=== PATIENT | female | born 1950 | race Caucasian/White ===

== ENCOUNTER 2016-06-10 20:24 | Emergency (ER) | payer MEDICARE, MEDICAID ==
[~2016-06-10] VITALS: Ht 152.4 cm; Wt 69.5 kg
[~2016-06-10 20:24] MED LIST: ATOR40TA68 PO; CEPH-443 PO; GLIP-95 PO; IBUP400T22 PO; LINA5TAB PO; LOSA25TA5 PO; METF-406 PO; RANI150T9 PO; SSD1C20 TOP; ULT50 PO
[2016-06-10 20:27] VITALS: Ht 152.4 cm; Wt 69.5 kg
[2016-06-10] MEDS ORDERED: LORA-186 PO (21:23)
[2016-06-10] MEDS ORDERED: IBUP-1542 PO (21:23)
--- NOTE | 2016-06-10 22:00 | ERD ---
ER Documentation Chief Complaint Date/Time DATE: 06/10/16 TIME: 21:[address] and colds x 4 days HPI 66-year-old female with a history of diabetes type 2 presents to the emergency room complaining of sore throat, nasal congestion and cough for the past 4 days. She denies any chest pain or shortness of breath. Denies any fever. She has not taken any medications for the ROS All systems reviewed and are negative except as per history of present illness. Medications Home Meds Active Scripts Ibuprofen* (Motrin*) 600 Mg Tab, 600 MG PO Q6H Y for PAIN AND OR ELEVATED TEMP, #30 TAB Prov:JOVITA LAUREN-C 06/10/16 Loratadine* (Claritin*) 10 Mg Tablet, 10 MG PO DAILY, #30 TAB Prov:JOVITA LAURENC 06/10/16 Ibuprofen* (Motrin*) 400 Mg Tab, 400 MG PO Q6H Y for PAIN AND OR ELEVATED TEMP, #20 TAB Prov:JOSIE MAHONEY NP 02/06/16 Tramadol HCl (Tramadol HCl) 50 Mg Tablet, 50 MG PO Q6 Y for SEVERE PAIN LEVEL 7- 10, #20 TAB Prov:JOSIE MAHONEY NP 02/06/16 Cephalexin* (Keflex*) 500 Mg Capsule, 500 MG PO QID for 10 Days, CAP Prov:JOSIE MAHONEY NP 02/06/16 Silver Sulfadiazine (THERMAZENE 1% 25 GM) 1 Applic Cr, 1 APPLIC TOP BID, #1 TUB Prov:JOSIE MAHONEY NP 02/06/16 Ranitidine Hcl* (Zantac*) 150 Mg Tablet, 150 MG PO BID Y for EPIGASTRIC PAIN, # 30 TAB Prov:DARRON GARCIA DO 01/10/16 Tramadol HCl (Tramadol HCl) 50 Mg Tablet, 25 MG PO Q8 Y for PAIN, #10 TAB Prov:DARRON GARCIA DO 01/10/16 Reported Medications Atorvastatin* (Atorvastatin*) 40 Mg Tablet, 40 MG PO QHS, #30 TAB 01/10/16 Linagliptin (TRADJENTA) 5 Mg Tablet, 5 MG PO DAILY, TAB 01/10/16 Glipizide* (Glipizide*) 10 Mg Tablet, 10 MG PO BID, TAB 01/10/16 Losartan Potassium* (Losartan Potassium*) 25 Mg Tablet, 25 MG PO DAILY, TAB 11/04/15 Metformin Hcl* (Metformin Hcl* ER) 1,000 Mg Tab.er.24, 1000 MG PO BID, TAB.SA 12/04/13 Allergies Allergies: Coded Allergies: No Known Drug Allergies (Verified Allergy, Unknown, 01/10/16) PMhx/Soc History of Surgery: Yes (L Knee Surg) Anesthesia Reaction: No Hx Neurological Disorder: No Hx Respiratory Disorders: No Hx Cardiac Disorders: No Hx Psychiatric Problems: No Hx Miscellaneous Medical Probl: Yes (DM) Hx Alcohol Use: No Hx Substance Use: No Hx Tobacco Use: No Smoking Status: Never smoker Physical Exam Vitals Vital Signs Date Time Temp Pulse Resp B/P Pulse Ox O2 Delivery O2 Flow Rate FiO2 06/10/16 20:27 98.3 91 20 132/68 97 Physical Exam GENERAL: well-developed/well-nourished, in no apparent distress, non-toxic appearing HEAD: NC/AT, no swelling noted in frontal or maxillary areas EARS: bilateral tympanic membrane is intact without erythema or effusion NARES: nares congested THROAT: oropharynx non-erythematous without exudates, no tonsil enlargement, post nasal drip EYES: Conjunctiva normal NECK: Supple, no lymphadenopathy PULM: CTA bilaterally, no rales, rhonchi, or wheezing heard CV: Normal S1S2, RRR, good capillary refill GI: Soft, non-distended, normal bowel sounds, non-tender BACK: No midline tenderness, no masses EXT No clubbing, cyanosis, or edema NEURO: Alert and Orientated SKIN: Intact, normal turgor PSYCH: Normal mood and mentation Procedures/MDM MDM: 66-year-old female with history of diabetes type 2 presents to the ER with symptoms of upper respiratory infection, which is most likely viral. My clinical suspicion is low suspicion for pneumonia, strep pharyngitis, or pulmonary emergencies due to physical examination. Patient's lungs were clear on examination. DISPOSITION: hemodynamically stable for discharge. Prescription for Claritin and ibuprofen was given to patient, discussed to return to the ED if not improving as expected or follow-up with a primary care physician. Patient understood and agreed with this plan. Departure Diagnosis: Primary Impression: URI (upper respiratory infection) Condition: Stable Patient Instructions: Preventing Common Respiratory Infections, Uri, Viral, No Abx (Adult) Additional Instructions: FOLLOW UP WITH YOUR PRIMARY CARE PHYSICIAN TOMORROW.Return to this facility if you are not improving as expected. Take all medicines as directed. Return to this facility if you are not improving as expected. JOVITA LAUREN PA-C Jun 10, 2016 22:00
== END 2016-06-10 21:35 | disposition home or self-care (01) ==
LOC: FTE 20:24
DX: J06.9 Acute upper respiratory infection, unspecified (principal); E11.9 Type 2 diabetes mellitus without complications; Z79.84 Long term (current) use of oral hypoglycemic drugs
CPT/HCPCS: 99283

== ENCOUNTER 2016-08-06 10:27 | Emergency (ER) | payer MEDICARE, MEDICAID ==
[~2016-08-06] VITALS: Wt 64.5 kg
[~2016-08-06 10:27] MED LIST changes: +IBUP-1542 PO; +LORA-186 PO; +TRAM50TA2 PO; -ULT50 PO
[2016-08-06] MEDS ORDERED: CLOT30CR24 TOP (12:00)
[2016-08-06] MEDS ORDERED: CEPH-443 PO (12:01)
--- NOTE | 2016-08-06 12:07 | ERD ---
ER Documentation Chief Complaint Date/Time DATE: 08/06/16 TIME: 12:03 Chief Complaint rash on chest and itching . no pain. no signs of sob (AMANUEL GARCIA) HPI This is a 66-year-old female that presents to the ER with a rash under both breasts for the last 2 weeks. Patient states that rash is red, very itchy. She denies any pain. She denies any chest pain or shortness of breath. She denies any fevers or chills. Patient has not tried anything for this rash. (AMANUEL GARCIA) ROS 12 point review of systems was done, all negative except per HPI. (AMANUEL GARCIA) Medications Home Meds Active Scripts Cephalexin* (Keflex*) 500 Mg Capsule, 500 MG PO BID for 7 Days, CAP Prov:AMANUEL GARCIA 08/06/16 Clotrimazole* (Clotrimazole* AF) 1% - 30 Gm Cream.gm., 1 APPLIC TOP BID for 7 Days, TUB Prov:AMANUEL GARCIA 08/06/16 Ibuprofen* (Motrin*) 600 Mg Tab, 600 MG PO Q6H Y for PAIN AND OR ELEVATED TEMP, #30 TAB Prov:JOVITA LAURENC 06/10/16 Loratadine* (Claritin*) 10 Mg Tablet, 10 MG PO DAILY, #30 TAB Prov:JOVITA LAURENC 06/10/16 Ibuprofen* (Motrin*) 400 Mg Tab, 400 MG PO Q6H Y for PAIN AND OR ELEVATED TEMP, #20 TAB Prov:JOSIE MAHONEY NP 02/06/16 Tramadol HCl (Tramadol HCl) 50 Mg Tablet, 50 MG PO Q6 Y for SEVERE PAIN LEVEL 7- 10, #20 TAB Prov:JOSIE MAHONEY NP 02/06/16 Cephalexin* (Keflex*) 500 Mg Capsule, 500 MG PO QID for 10 Days, CAP Prov:JOSIE MAHONEY NP 02/06/16 Silver Sulfadiazine (THERMAZENE 1% 25 GM) 1 Applic Cr, 1 APPLIC TOP BID, #1 TUB Prov:JOSIE MAHONEY NP 02/06/16 Ranitidine Hcl* (Zantac*) 150 Mg Tablet, 150 MG PO BID Y for EPIGASTRIC PAIN, # 30 TAB Prov:DARRON GARCIA DO 01/10/16 Tramadol HCl (Tramadol HCl) 50 Mg Tablet, 25 MG PO Q8 Y for PAIN, #10 TAB Prov:DARRON GARCIA DO 01/10/16 Reported Medications Atorvastatin* (Atorvastatin*) 40 Mg Tablet, 40 MG PO QHS, #30 TAB 01/10/16 Linagliptin (TRADJENTA) 5 Mg Tablet, 5 MG PO DAILY, TAB 01/10/16 Glipizide* (Glipizide*) 10 Mg Tablet, 10 MG PO BID, TAB 01/10/16 Losartan Potassium* (Losartan Potassium*) 25 Mg Tablet, 25 MG PO DAILY, TAB 11/04/15 Metformin Hcl* (Metformin Hcl* ER) 1,000 Mg Tab.er.24, 1000 MG PO BID, TAB.SA 12/04/13 Allergies Allergies: Coded Allergies: No Known Drug Allergies (Verified Allergy, Unknown, 01/10/16) PMhx/Soc History of Surgery: Yes (L Knee Surg) Anesthesia Reaction: No Hx Neurological Disorder: No Hx Respiratory Disorders: No Hx Cardiac Disorders: No Hx Psychiatric Problems: No Hx Miscellaneous Medical Probl: Yes (DM) Hx Alcohol Use: No Hx Substance Use: No Hx Tobacco Use: No (AMANUEL GARCIA) Physical Exam Vitals Vital Signs Date Time Temp Pulse Resp B/P Pulse Ox O2 Delivery O2 Flow Rate FiO2 08/06/16 10:37 98.1 73 20 150/89 98 (BYRON SHIRLEY MD) Physical Exam GENERAL: The patient is well developed and appropriate for usual state of health , in no apparent distress. HEENT: Atraumatic CHEST: Clear to auscultation bilaterally. There are no rales, wheezes or rhonchi. HEART: Regular rate and rhythm. No murmurs, clicks, rubs or gallops. EXTREMITIES: Equal pulses bilaterally. There is no peripheral clubbing, cyanosis or edema. No focal swelling or erythema. Full range of motion. Grossly neurovascularly intact. NEURO: Alert and oriented. SKIN: beefy red rash under both breasts, there are areas where patient has scratched that have dry discharge on them and surrounding erythema (AMANUEL GARCIA) Procedures/MDM Differential Diagnosis: dermatitis, allergic urticaria, viral exanthem, insect bite, fungal infectio ,viral exanthem, hand foot mouth disease, , impetigo, cellulitis, abscess, boni seferino syndrome, meningocemia, necrotizing fasciitis, myositis. This is likely a fungal infection. Patient will be sent home with clotrimazole. She will also be given Keflex as there may be a bacterial infection secondary to constant scratching. Patient is afebrile and well-appearing. She is to follow up with her primary care doctor within 1-2 days or return to ER sooner if symptoms worsen. Medical decision making was shared with the patient she understands and agrees with plan. Discussed this case with my supervising physician Dr. Shirley, please see his note. 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 Objective-the rashes with satellite lesions beneath the bilateral breasts with slight amount of clearish discharge Assessment-likely tinea corporis with possible secondary infection Plan-Lotrimin and Keflex and further observation and follow-up with primary doctor (BYRON SHIRLEY MD) Departure Diagnosis: Primary Impression: Rash Condition: Stable Patient Instructions: Radha Skin Infection (Adult) Referrals: EDE STRANGE MD (PCP) Additional Instructions: Call your primary care doctor TOMORROW for an appointment during the next 1-2 days.See the doctor sooner or return here if your condition worsens before your appointment time. AMANUEL GARCIA Aug 06, 2016 12:06 BYRON SHIRLEY MD Aug 06, 2016 12:35
== END 2016-08-06 13:16 | disposition home or self-care (01) ==
LOC: FTE 10:27
DX: R21 Rash and other nonspecific skin eruption (principal); E11.9 Type 2 diabetes mellitus without complications; Z79.84 Long term (current) use of oral hypoglycemic drugs
CPT/HCPCS: 99283

== ENCOUNTER 2017-09-26 18:05 | Emergency (ER) | END 2017-09-26 19:31 | disposition home or self-care (01) ==

== ENCOUNTER 2017-09-27 17:05 | Inpatient (IN) | END 2017-09-28 13:30 | disposition home or self-care (01) | DRG 871 ==

== ENCOUNTER 2018-01-13 10:27 | Emergency (ER) | END 2018-01-13 12:03 | disposition home or self-care (01) ==

== ENCOUNTER 2018-03-17 11:11 | Emergency (ER) | END 2018-03-17 13:00 | disposition home or self-care (01) ==

== ENCOUNTER 2018-03-20 11:28 | Emergency (ER) | END 2018-03-20 14:07 | disposition home or self-care (01) ==

== ENCOUNTER 2018-04-06 11:24 | Emergency (ER) | END 2018-04-06 14:31 | disposition home or self-care (01) ==

== ENCOUNTER 2018-06-07 10:28 | Emergency (ER) | payer OTHER ==
[~2018-06-07] VITALS: Ht 167.6 cm; Wt 58.2 kg
[~2018-06-07 10:28] MED LIST changes: +ACET500C5 PO; -ATOR40TA68 PO; +AZIT500T5 PO; +CEFP200T2 PO; -CEPH-443 PO; +DAPA10TA PO; +DOXY100T21 PO; +EMPA10TA PO; -GLIP-95 PO; +GLIP10TA14 PO; -IBUP-1542 PO; -IBUP400T22 PO; -LINA5TAB PO; -LORA-186 PO; -LOSA25TA5 PO; +MAG355OR14 PO; -METF-406 PO; +METF100010 PO; +NAPR-985 PO; -RANI150T9 PO; -SSD1C20 TOP; -TRAM50TA2 PO
[2018-06-07 10:31] VITALS: Ht 167.6 cm; Wt 58.2 kg
[2018-06-07] MEDS ORDERED: ONDANSETRON (ODT) 4 MG TAB ODT STA (10:53)
[2018-06-07] MEDS ORDERED: HYDROCODONE/APAP (5/325) TAB PO ONE (11:00)
[2018-06-07] MEDS ORDERED: HYDR-4011 PO (11:51)
[2018-06-07] MEDS ORDERED: ONDA4TAB14 PO (11:51)
--- NOTE | 2018-06-07 11:55 | ERD ---
ER Documentation Chief Complaint Chief Complaint Complains of headache neck pain that radiates to the shoulder HPI Very pleasant 68-year-old female who presents to the emergency room complaining of occipital head pain, paraspinal neck pain and bilateral trapezius pain for approximately 1-1/2 weeks. She states that she had a mechanical trip and fall approximately 2 weeks ago. Since then she has had this discomfort. She did not seek care did not lose consciousness. She is having mild to moderate symptoms but is feeling tightness in her neck muscles. Tylenol is not improving her symptoms. She denies any nausea or vomiting, no migratory pain no chest pain no numbness or tingling or motor weakness. ROS All systems reviewed and are negative except as per history of present illness. Medications Home Meds Active Scripts Ondansetron (Ondansetron Odt) 4 Mg Tab.rapdis, 4 MG PO Q6H PRN for NAUSEA AND/OR VOMITING, #10 TAB Prov:JANES SHIN MD 06/07/18 Hydrocodone/Acetaminophen ([place] 5-325 Tablet) 1 Each Tablet, 1 TAB PO Q6H PRN for PAIN, #7 TAB Prov:JANES SHIN MD 06/07/18 Reported Medications Dapagliflozin Propanediol (Farxiga) 10 Mg Tablet, 10 MG PO DAILY, #30 TAB 09/27/17 Metformin Hcl* (Metformin Hcl*) 1,000 Mg Tablet, 1000 MG PO WITH BREAKFAST DINNE, #60 TAB 09/27/17 Glipizide* (Glipizide*) 10 Mg Tablet, 10 MG PO AC BREAKFAST DINNER, TAB 09/27/17 Discontinued Reported Medications Empagliflozin (Jardiance) 10 Mg Tablet, 10 MG PO DAILY, TAB 09/27/17 Discontinued Scripts Mag Hydrox/Al Hydrox/Simeth (Maalox Advanced Suspension) 355 Ml Oral.susp, 2 TSP PO TID PRN for PAIN, #24 OZ Prov:AYESHA LIEBERMAN MD 04/06/18 Naproxen* (Naprosyn*) 500 Mg Tablet, 500 MG PO BID PRN for PAIN AND/OR INFLAMMATION, #30 TAB Prov:AYESHA LIEBERMAN MD 04/06/18 Acetaminophen* (Tylophen*) 500 Mg Capsule, 1 CAP PO Q6H PRN for PAIN AND OR ELEVATED TEMP, #15 CAP Prov:BYRON BUCHANAN MD 03/17/18 Doxycycline Monohydrate* (Doxycycline Monohydrate*) 100 Mg Tablet, 100 MG PO BID for 7 Days, TAB Prov:BYRON BUCHANAN MD 03/17/18 Azithromycin* (Azithromycin*) 500 Mg Tablet, 500 MG PO DAILY, #2 TAB Prov:HUEY ANGUIANO MD 09/28/17 Cefpodoxime Proxetil* (Cefpodoxime Proxetil*) 200 Mg Tablet, 200 MG PO Q12, #10 TAB Prov:HUEY ANGUIANO MD 09/28/17 Allergies Allergies: Coded Allergies: No Known Drug Allergies (Verified Allergy, Unknown, 06/07/18) PMhx/Soc History of Surgery: Yes (tucker knee surgery) Anesthesia Reaction: No Hx Neurological Disorder: No Hx Respiratory Disorders: No Hx Cardiac Disorders: No Hx Psychiatric Problems: No Hx Miscellaneous Medical Probl: Yes (DM,Hyperlipidemia) Hx Alcohol Use: No Hx Substance Use: No Hx Tobacco Use: No FmHx Family History: No diabetes Physical Exam Vitals Vital Signs Date Temp Pulse Resp B/P (MAP) Pulse Ox O2 O2 Flow FiO2 Time Delivery Rate 06/07/18 97.1 85 20 133/70 97 10:31 (91) Physical Exam Airway is intact Bilateral breath sounds Strong distal pulses No obvious deficits General: Well developed, well nourished, no acute distress Head: Normocephalic, atraumatic Eyes: Pupils equally reactive, EOM intact ENT: Moist mucous membranes Neck: Supple, no lymphadenopathy, No midline tenderness, deformities, step-offs to the cervical spine, full active and passive range of motion without midline pain. Paraspinal soft tissue tenderness to the cervical neck muscles and trapezius muscles bilaterally Respiratory: Lungs clear bilaterally, no distress, no chest wall tenderness, no crepitus Cardiovascular: RRR, no murmurs, rubs, or gallops Abdominal: Soft, non-tender, non-distended, no peritoneal signs, pelvis is stable : Deferred MSK: No edema, no unilateral swelling, 5/5 strength, no midline tenderness deformities or step-offs to the thoracolumbar spine Neurologic: Alert and oriented, moving all extremities, normal speech, no focal weakness, no cerebellar signs Skin: No ecchymoses or bruising to the chest or abdomen Psych: Normal mood Results 24 hrs Current Medications Medications Dose Sig/Fahad Start Time Status Last (Trade) Ordered Route PRN Stop Time Admin Dose Reason Admin 1 tab ONCE ONCE 06/07/18 DC 06/07/18 Acetaminophen PO 11:00 11:08 / 06/07/18 Hydrocodone 11:01 Bitart ([place] (5/325)) Ondansetron 4 mg ONCE STAT 06/07/18 DC 06/07/18 HCl (Zofran ODT 10:53 11:08 Odt) 06/07/18 10:56 Procedures/MDM EKG, MONITORS, & DIAGNOSTIC IMAGING: CT brain: No acute process per radiologist read CT cervical spine: No acute process per radiologist read MEDICAL DECISION MAKING: Head and neck pain very consistent with muscular skeletal etiology, likely close head injury, whiplash injury and muscular skeletal strain. The patient exhibits no signs or symptoms concerning for infectious process. No evidence of dissection. Very low pretest probability for clinically significant traumatic brain injury but given patient's age CT of the head and cervical spine seem appropriate. ER COURSE: * Patient was given [place] with relief * Diagnostic imaging shows no evidence of traumatic injury that would warrant hospitalization or surgical intervention. The patient can be safely discharged with close primary care follow-up. Range of motion exercises, warm compresses appropriate * I have paged primary care physician to discuss outpatient follow-up. CONSULTATION: [None] DISPOSITION PLAN: We discussed follow up with the patient's primary care doctor within 24 to 48 hours as needed. We also discussed return to the emergency room for worsening symptoms or worsening condition. Outpatient referral: [None required] Discharge Medications: [place] 5 mg a total of 7 tablets Departure Diagnosis: Primary Impression: Closed head injury Encounter type: initial encounter Qualified Codes: S09.90XA - Unspecified injury of head, initial encounter Additional Impression: Cervical sprain Encounter type: initial encounter Qualified Codes: S13.9XXA - Sprain of joints and ligaments of unspecified parts of neck, initial encounter Condition: Stable Patient Instructions: Neck Problems: Relieving Your Symptoms, HEAD INJURY, No Wake-Up (Adult) Additional Instructions: Call your primary care doctor TOMORROW for an appointment during the next 1 WEEK.Tell the elementary secretary that you were referred from this facility.See the doctor sooner or return here if your condition worsens before your appointment time. JANES SHIN MD Jun 07, 2018 11:55
[2018-06-07 12:26] VITALS: BP 133/70; PULSE 77; RESP 18
== END 2018-06-07 12:00 | disposition home or self-care (01) ==
LOC: E/R 10:28
DX: S09.90XA Unspecified injury of head, initial encounter (principal); S13.9XXA Sprain of joints and ligaments of unspecified parts of neck, initial encounter; I10 Essential (primary) hypertension; R51 Headache; E11.9 Type 2 diabetes mellitus without complications; W01.0XXA Fall on same level from slipping, tripping and stumbling without subsequent striking against object, initial encounter; Y92.9 Unspecified place or not applicable; Z79.84 Long term (current) use of oral hypoglycemic drugs
CPT/HCPCS: 70450; 72125; 93005

== ENCOUNTER 2019-01-26 11:27 | Emergency (ER) | payer OTHER ==
[~2019-01-26] VITALS: Ht 160 cm; Wt 56.7 kg
[~2019-01-26 11:27] MED LIST changes: -ACET500C5 PO; -AZIT500T5 PO; -CEFP200T2 PO; -DOXY100T21 PO; -EMPA10TA PO; +HYDR-4011 PO; -MAG355OR14 PO; +ONDA4TAB14 PO
[2019-01-26 11:39] VITALS: Ht 160 cm; Wt 56.7 kg
[2019-01-26 19:31] VITALS: BP 129/60; PULSE 86; RESP 18
== END 2019-01-26 19:32 | disposition home or self-care (01) ==
LOC: FTE 11:27
DX: M54.9 Dorsalgia, unspecified (principal); E11.9 Type 2 diabetes mellitus without complications; Z79.84 Long term (current) use of oral hypoglycemic drugs
CPT/HCPCS: 36415; 72040; 72148; 74176; 80053; 81001; 83690; 85025